=== PATIENT | male | born 1960 | race Caucasian/White ===

== ENCOUNTER 2023-02-03 10:52 | Outpatient (CLI) | payer OTHER ==
[~2023-02-03 10:52] MED LIST: CIPRO500 MG PO; FLAGYL500MG PO; ULTRACET PO
== END 2023-02-03 10:56 | disposition home or self-care (01) ==
LOC: SONOGRAMA 10:52
PROVIDERS: ATTEND Surgery
DX: K40.90 Unilateral inguinal hernia, without obstruction or gangrene, not specified as recurrent (principal)

== ENCOUNTER 2023-02-14 05:58 | Day surgery (SDC) | payer OTHER ==
[~2023-02-14] VITALS: Ht 190.5 cm; Wt 99.8 kg
[~2023-02-14 05:58] MED LIST changes: +CALCIT PO; +CANASA1000 MG; +LIALDA1.2 GM PO; +STELARA90 MG/1 ML SQ; +SYNTHROID75 MCG PO
== END 2023-02-14 10:55 | disposition home or self-care (01) ==
LOC: CIR.AMB 05:58
PROVIDERS: ATTEND Surgery
DX: K40.30 Unilateral inguinal hernia, with obstruction, without gangrene, not specified as recurrent (principal); Z20.822 Contact with and (suspected) exposure to COVID-19; E03.9 Hypothyroidism, unspecified; K50.90 Crohn's disease, unspecified, without complications